=== PATIENT | male | born 1950 | race African-American/Black ===

== ENCOUNTER 2019-01-20 01:26 | Emergency (ER) | payer OTHER ==
[~2019-01-20] VITALS: Ht 182.9 cm; Wt 73.0 kg
[2019-01-20] MEDS ORDERED: KETOROLAC 60MG/2ML VIAL IM ONE (02:00)
[2019-01-20 03:14] VITALS: BP 131/69
== END 2019-01-20 03:18 | disposition home or self-care (01) ==
LOC: ER 01:26
DX: S20.212A Contusion of left front wall of thorax, initial encounter (principal); E11.9 Type 2 diabetes mellitus without complications; I10 Essential (primary) hypertension; V49.49XA Driver injured in collision with other motor vehicles in traffic accident, initial encounter; Y93.89 Activity, other specified; Y92.89 Other specified places as the place of occurrence of the external cause; Y99.8 Other external cause status
CPT/HCPCS: 71100; 96372; 99283; J1885